=== PATIENT | male | born 1965 | race Two or more races ===

== ENCOUNTER 2018-05-25 17:41 | Emergency (ER) | payer BC, OTHER ==
[~2018-05-25] VITALS: Ht 162.6 cm; Wt 89.2 kg
[2018-05-25 17:43] VITALS: BP 135/91
== END 2018-05-25 18:22 | disposition home or self-care (01) ==
LOC: ED 18:16
DX: H66.92 Otitis media, unspecified, left ear (principal); B97.89 Other viral agents as the cause of diseases classified elsewhere; J02.8 Acute pharyngitis due to other specified organisms; J03.90 Acute tonsillitis, unspecified; J00 Acute nasopharyngitis [common cold]; J01.90 Acute sinusitis, unspecified
CPT/HCPCS: 99283

== ENCOUNTER 2018-11-28 14:06 | Emergency (ER) | payer BC ==
[~2018-11-28] VITALS: Ht 162.6 cm; Wt 87.2 kg
[2018-11-28 14:28] VITALS: BP 132/86
--- NOTE | 2018-11-28 14:52 | NUR ---
PER FAMILY "HE HAS A CANKER SORE. HE'S HAD IT FOR 4 DAYS." NO ACUTE DISTRESS NOTED. NO C/O TRAUMA,
--- NOTE | 2018-11-28 15:03 | NUR ---
Patient/Caregiver given discharge instructions and they have confirmed that they understand the instructions. Patient ambulatory with steady gait. PT LEFT WITH ALL PERSONAL BELONGINGS.
== END 2018-11-28 15:04 | disposition home or self-care (01) ==
LOC: ED 15:00
DX: K12.0 Recurrent oral aphthae (principal)
CPT/HCPCS: 99283